=== PATIENT | female | born 1945 | race Caucasian/White ===

== ENCOUNTER 2020-07-21 09:16 | Emergency (ER) | payer MEDICARE, OTHER ==
[2020-07-21] MEDS ORDERED: Acetaminophen 500 MG Tab PO ONE (09:28)
--- NOTE | 2020-07-21 09:48 | EDM.PDOC ---
ED HPI GENERAL MEDICAL PROBLEM - General Chief Complaint: Upper Extremity Injury/Pain Stated Complaint: FALL ONTO LEFT SIDE Time Seen by Provider: 07/21/20 09:25 Source of Information: Reports: Patient History Limitations: Reports: No Limitations - History of Present Illness INITIAL COMMENTS - FREE TEXT/NARRATIVE: pt states she was going down a flight of stairs , reached the middle (5 more steps left) and her down came running and she turned her head tot ht left to look at the dog, then fell but does not recall the fall recalls her coming to her and waking her up. then she had pain in the left forehead , left hand and left side of chest this am went to clinic as she was still hurting denies any chest pain , no shortness of breath no dizziness, no blurred vision Onset: Sudden Onset Date: 07/20/20 Duration: Hour(s):, Getting Worse Location: Reports: Head, Chest, Upper Extremity, Left Quality: Reports: Ache Severity: Moderate Improves with: Reports: None Worsens with: Reports: None, Movement Context: Reports: Trauma, Other (fell from stairs) Associated Symptoms: Reports: Weakness Treatments WRAPPER HAND: Reports: Acetaminophen (yesterday) left wrist Pain Score (Numeric/FACES): 6 left upper rib area Pain Score (Numeric/FACES): 1 - Related Data Allergies Allergy/AdvReac Type Severity Reaction Status Date / Time No Known Allergies Allergy Verified 07/21/20 09:28 Home Meds: Home Meds Aspirin [[place] Aspirin EC] 81 mg PO DAILY 09/29/14 [History] Ezetimibe [Zetia] 10 mg PO DAILY 09/29/14 [History] Losartan Potassium [Cozaar] 50 mg PO DAILY 09/29/14 [History] NIFEdipine [Nifediac cc] 120 mg PO DAILY 09/29/14 [History] Simvastatin [Zocor] 40 mg PO DAILY 09/29/14 [History] Triamterene/Hydrochlorothiazid [Dyazide 37.5-25] 1 ea PO DAILY 09/29/14 [History] Past Medical History HEENT History: Reports: Hard of Hearing Cardiovascular History: Reports: High Cholesterol, Hypertension - Past Surgical History GI Surgical History: Reports: Colonoscopy Social & Family History - Family History Family Medical History: No Pertinent Family History Review of Systems - Review of Systems Review Of Systems: See Below ED EXAM, GENERAL - Physical Exam Exam: See Below Exam Limited By: No Limitations General Appearance: Alert, WD/WN, No Apparent Distress Eye Exam: Bilateral Eye: EOMI Ears: Normal External Exam, Normal TMs Ear Exam: Bilateral Ear: TM Dull Nose: Normal Inspection Throat/Mouth: Normal Inspection, Normal Oropharynx Head: Other (left frontal swelling , hematoma) Neck: Supple, Non-Tender Respiratory/Chest: Lungs Clear, Normal Breath Sounds Cardiovascular: Normal Peripheral Pulses, Regular Rate, Rhythm Peripheral Pulses: 2+: Radial (L), Radial (R) GI/Abdominal: Soft, Non-Tender Back Exam: Full Range of Motion Extremities: Limited Range of Motion (left wrist laterally with tenderness in the ulna styloid) Neurological: Alert, Oriented, CN II-XII Intact Psychiatric: Normal Affect Skin Exam: Warm, Intact Course - Vital Signs Last Recorded V/S: Last Vital Signs Temp 36.3 C 07/21/20 09:20 Pulse 85 07/21/20 09:20 Resp 17 07/21/20 09:20 BP 154/67 H 07/21/20 09:20 Pulse Ox 97 07/21/20 09:20 - Orders/Labs/Meds Orders: Active Orders 24 hr Category Date Time Status Head wo Cont [CT] Stat Exams 07/21/20 09:42 Taken Wrist Comp Min 3V Lt [CR] Stat Exams 07/21/20 09:41 Taken Meds: Medications Discontinued Medications Generic Name Dose Route Start Last Admin Trade Name Marybeth PRN Reason Stop Dose Admin Acetaminophen 1,000 mg 07/21/20 09:28 07/21/20 09:37 Acetaminophen 500 Mg Tab PO 07/21/20 09:29 1,000 mg ONETIME ONE Administration - Re-Assessments/Exams Free Text/Narrative Re-Assessment/Exam: 07/21/20 10:38 pt had tylenol for pain had head CT and xray of the wrist ( left) pt has left chest wall pain , contusion that is mild , does not need chest Xray will monitor Departure - Departure Time of Disposition: 10:50 Disposition: Home, Self-Care 01 Condition: Fair Clinical Impression: Fall down stairs, Head injury with loss of consciousness, Acute wrist pain, Left wrist sprain - Discharge Information *PRESCRIPTION DRUG MONITORING PROGRAM REVIEWED*: Not Applicable *COPY OF PRESCRIPTION DRUG MONITORING REPORT IN PATIENT DERRELL: Not Applicable Instructions: Head Injury, Adult, [id number], Wrist Sprain Rehab-SportsMed Referrals: Tatiana Doan SENIOR OFFICE ASSISTANT [Primary Care Provider] - Forms: ED Department Discharge Additional Instructions: 1) Continue with cold compress to the left wrist 3 times daily 2) Keep wrist brace on till pain has resolved . If pain still present by the 10th day , you will need a repeat Xray of the wrist to assess for a stress fracture 3) Make follow up appointment to see your doctor in 3-5 days , to reassess head injury 4) Call with any concerns Sepsis Event Note (ED) - Evaluation Sepsis Screening Result: No Definite Risk - Focused Exam Vital Signs: Vital Signs Temp Pulse Resp BP Pulse Ox 07/21/20 09:20 36.3 C 85 17 154/67 H 97 - My Orders Last 24 Hours: My Active Orders 07/21/20 09:41 Wrist Comp Min 3V Lt [CR] Stat 07/21/20 09:42 Head wo Cont [CT] Stat - Assessment/Plan Last 24 Hours: My Active Orders 07/21/20 09:41 Wrist Comp Min 3V Lt [CR] Stat 07/21/20 09:42 Head wo Cont [CT] Stat
[2020-07-21 11:20] VITALS: BP 124/71; PULSE 76
--- NOTE | 2020-07-23 11:20 | CR ---
INDICATION: Fall. Lateral wrist pain. LEFT WRIST: Three views of the left wrist were obtained 07/21/20 - no comparisons. There is an appearance suggesting periarticular demineralization which may be on the basis of a generalized process of inflammatory arthritis such as rheumatoid arthritis. This should be correlated clinically. Additionally, there are some hypertrophic degenerative changes along the areas of bony periarticular erosion suggesting a mix of osteoarthritic and inflammatory arthritic changes. A definite acute fracture or dislocation was not identified. IMPRESSION: 1. No definite acute fracture or dislocation - correlate clinically with followup studies in 10 to 14 days if symptoms persist and occult fracture site is suspected clinically. 2. Arthritis. MTDD
== END 2020-07-21 11:05 | disposition home or self-care (01) ==
LOC: FB.ED 09:16
DX: S06.9X9A Unspecified intracranial injury with loss of consciousness of unspecified duration, initial encounter (principal); S63.502A Unspecified sprain of left wrist, initial encounter; E78.00 Pure hypercholesterolemia, unspecified; I10 Essential (primary) hypertension; Z79.82 Long term (current) use of aspirin; Z79.899 Other long term (current) drug therapy; W10.9XXA Fall (on) (from) unspecified stairs and steps, initial encounter
CPT/HCPCS: 70450; 73110-LT; 99283; 99284-25; A9270-GY